=== PATIENT | male | born 1965 | race Two or more races ===

== ENCOUNTER 2018-07-04 10:50 | Emergency (ER) | payer BC, OTHER ==
[~2018-07-04] VITALS: Ht 175.3 cm; Wt 97.5 kg
[~2018-07-04 10:50] MED LIST: CYCLOBENZAPRINE5 MG PO; HYDROCHLOROTHIA25 MG PO; LIPITOR; LIPITOR20 MG PO; NKM; PANTOPRAZOLE SO40 MG PO; TYLENOL WITH C1 EACH PO
--- OUTSIDE RECORDS SUMMARY | 2018-07-04 10:53 | XMS REPORT | Clinical Summary ---
Author Author [facility] Address Unknown Phone Unavailable Care Team Providers Care Telephone Mechanic Name Role Phone Rocky Lilly MD PCP Allergies No Known Allergies Medications End Date Status Medication Sig Dispensed Refills Start Date Active gabapentin (NEURONTIN) Take 300 mg 0 300 mg capsule by mouth 3 (three) times a day. Active atorvastatin (LIPITOR) 40 Take 1 tablet 90 tablet 1 MG tabletIndications: (40 mg total) 9 Elevated lipids by mouth nightly. 05/08/2018 Discontinued valACYclovir (VALTREX) Take 1,000 mg 0 500 MG tablet by mouth daily as needed. For cold sores. Take for 5 days. 05/13/2018 valACYclovir (VALTREX) Take 2 10 tablet 2 500 MG tabletIndications: tablets 9 Recurrent cold sores (1,000 mg total) by mouth daily for 5 days. For cold sores outbreaks Active Problems Problem Noted Date Family history of prostate cancer 05/08/2018 Colon cancer screening 05/08/2018 KOJO on CPAP 05/08/2018 Recurrent cold sores 05/08/2018 Nerve pain 05/08/2018 Encounters Care Team Description Date Type Specialty nAa M Richards RN 07/04/2018 Telephone Access Ana M Richards RN 07/04/2018 Nurse Triage Access Rocky Lilly MD Annual physical exam (Primary Dx); Essential hypertension; Elevated lipids; KOJO on CPAP; Prostate cancer screening; BMI 33.0-33.9,adult; Recurrent cold sores; Need for influenza vaccination 05/08/2018 Office Visit Internal Medicine after 07/03/2017 Immunizations Name Dates Previously Given Next Due INFLUENZA QUAD 05/08/2018 Family History Medical History Relation Name Comments Cancer Father Prostate cancer Father Breast cancer Mother Cancer Mother Relation Name Status Comments Father Alive Mother Social History Date Tobacco Use Types Packs/Day Years Used Never Smoker Smokeless Tobacco: Never Used Alcohol Use Drinks/Week oz/Week Comments Yes Sex Assigned at Date Recorded Not on file Industry Job Start Date Occupation Not on file Not on file Not on file Travel End Travel History Travel Start No recent travel history available. Last Filed Vital Signs Time Taken Vital Sign Reading 05/08/2018 4:15 PM CDT Blood Pressure 122/80 05/08/2018 4:15 PM CDT Pulse 72 - Temperature - - Respiratory Rate - - Oxygen Saturation - - Inhaled Oxygen - Concentration 05/08/2018 4:15 PM CDT Weight 104 kg (230 lb) 05/08/2018 4:15 PM CDT Height 175.3 cm (5' 9") 05/08/2018 4:15 PM CDT Body Mass Index 33.97 Plan of Treatment Health Maintenance Due Date Last Done Comments INFLUENZA VACCINE 09/28/2018 05/08/2018 SHINGLES VACCINES (#1) 06/27/2019 Postponed from 04/27/2013 (Insurance / Financial) COLON CANCER SCREENING 02/28/2027 02/28/2017 Procedures Comments Procedure Name Priority Date/Time Associated Diagnosis MICROSCOPIC EXAMINATION Routine 05/16/2018 8:08 AM CDT PROSTATE-SPECIFIC ANTIGEN Routine 05/16/2018 Annual physical exam (PSA) (SERIAL MONITOR) 8:08 AM CDT Prostate cancer screening URINALYSIS, COMPLETE, Routine 05/16/2018 Annual physical exam WITH REFLEX TO CULTURE 8:08 AM CDT BMI 33.0-33.9,adult TSH REFLEX TO T4F Routine 05/16/2018 Annual physical exam 8:08 AM CDT BMI 33.0-33.9,adult LIPID PANEL WITH LDL/HDL Routine 05/16/2018 Elevated lipids RATIO 8:08 AM CDT Annual physical exam BMI 33.0-33.9,adult HEMOGLOBIN A1C Routine 05/16/2018 Annual physical exam 8:08 AM CDT BMI 33.0-33.9,adult COMPREHENSIVE METABOLIC Routine 05/16/2018 Essential hypertension PANEL 8:08 AM CDT Annual physical exam BMI 33.0-33.9,adult CBC WITH PLATELET AND Routine 05/16/2018 Essential hypertension DIFFERENTIAL 8:08 AM CDT Annual physical exam BMI 33.0-33.9,adult after 07/03/2017 Results * PSA, Serum (Serial Monitor) (05/16/2018 8:08 AM CDT) PSA 1.8 0.0 - 4.0 ng/mL [facility] Comment: Camilla ECLIA methodology. According to the [employer], Serum PSA should decrease and remain at undetectable levels after radical prostatectomy. The AUA defines biochemical recurrence as an initial PSA value 0.2 ng/mL or greater followed by a subsequent confirmatory PSA value 0.2 ng/mL or greater. Values obtained with different assay methods or kits cannot be used interchangeably. Results cannot be interpreted as absolute evidence of the presence or absence of malignant disease. Specimen Blood Narrative Performed At Performed at: [id number] Environmental Engineering Intern: Dionicio Escobedo MD, Phone:[phone] Performing Organization Address City/State/Zipcode Phone Number [facility] * URINALYSIS, COMPLETE, WITH REFLEX TO CULTURE (05/16/2018 8:08 AM CDT) Specific gravity, urine 1.021 1.005 - 1.030 [facility] pH, urine 6.5 5.0 - 7.5 [facility] Color, UA Yellow Yellow [facility] Appearance Clear Clear [facility] WBC esterase, urine Negative Negative [facility] Protein, UA Negative Negative/Trace [facility] Glucose, urine Negative Negative [facility] Ketones, UA Negative Negative [facility] Occult blood, urine Negative Negative [facility] Bilirubin, UA Negative Negative [facility] Urobilinogen, UA 0.2 0.2 - 1.0 mg/dL [facility] Nitrite, UA Negative Negative [facility] Microscopic examination CommentComment: Microscopic [facility] follows if indicated. Microscopic examination See below:Comment: Microscopic [facility] was indicated and was performed. Urinalysis reflex CommentComment: This specimen [facility] will not reflex to a Urine Culture. Narrative Performed At Performed at: [id number] Environmental Engineering Intern: Dionicio Escobedo MD, Phone:[phone] Performing Organization Address [facility] [place] Phone Number [facility] * TSH reflex to T4 (05/16/2018 8:08 AM CDT) TSH 1.290 0.450 - 4.500 uIU/mL [facility] Specimen Blood Narrative Performed At Performed at: [id number] Environmental Engineering Intern: Dionicio Escobedo MD, Phone:[phone] Performing Organization Address [facility] [place] Phone Number [facility] * Lipid panel with LDL/HDL ratio (05/16/2018 8:08 AM CDT) Cholesterol 184 100 - 199 mg/dL [facility] Triglycerides 131 0 - 149 mg/dL [facility] HDL cholesterol 34 (L) >39 mg/dL [facility] VLDL cholesterol triston 26 5 - 40 mg/dL [facility] LDL cholesterol 124 (H) 0 - 99 mg/dL [facility] calculated LDl/HDL ratio 3.6 0.0 - 3.6 ratio [facility] Comment: LDL/HDL Ratio Me nWomen 1/2 Avg.Risk1.01.5 Avg.Risk3.6 3.2 2X Avg.Risk6.25.0 3X Avg.Risk8.06.1 Specimen Blood Narrative Performed At Performed at: [id number] Environmental Engineering Intern: Dionicio Escobedo MD, Phone:[phone] Performing Organization Address [facility] [place] Phone Number [facility] * Microscopic Examination (05/16/2018 8:08 AM CDT) WBC, UA 0-5 0 - 5 /hpf [facility] RBC, UA None seen 0 - 2 /hpf [facility] Epithelial cells (non None seen 0 - 10 /hpf [facility] renal) Mucus, UA Present Not Estab. [facility] Bacteria, UA None seen None seen/Few [facility] Narrative Performed At Performed at: [id number] Environmental Engineering Intern: Dionicio Escobedo MD, Phone:[phone] Performing Organization Address [facility]/State/Zipcode Phone Number [facility] * CBC with platelet and differential (05/16/2018 8:08 AM CDT) WBC 5.1 3.4 - 10.8 x10E3/uL [facility] RBC 4.69 4.14 - 5.80 x10E6/uL [facility] HGB 13.5 13.0 - 17.7 g/dL [facility] HCT 39.3 37.5 - 51.0 % [facility] MCV 84 79 - 97 fL [facility] MCH 28.8 26.6 - 33.0 pg [facility] MCHC 34.4 31.5 - 35.7 g/dL [facility] RDW 13.5 12.3 - 15.4 % [facility] Platelet count 278 150 - 379 x10E3/uL [facility] Neutrophils 46 Not Estab. % [facility] Lymphocytes 46 Not Estab. % [facility] Monocytes 6 Not Estab. % [facility] Eosinophils 2 Not Estab. % [facility] Basophils 0 Not Estab. % [facility] Neutrophils, absolute 2.3 1.4 - 7.0 x10E3/uL [facility] Lymphocytes, absolute 2.3 0.7 - 3.1 x10E3/uL [facility] Monocytes, absolute 0.3 0.1 - 0.9 x10E3/uL [facility] Eosinophils, absolute 0.1 0.0 - 0.4 x10E3/uL [facility] Basophils, absolute 0.0 0.0 - 0.2 x10E3/uL [facility] Immature granulocytes 0 Not Estab. % [facility] Immature grans (abs) 0.0 0.0 - 0.1 x10E3/uL [facility] Specimen Blood Narrative Performed At Performed at: - [facility] [address], [id number] Environmental Engineering Intern: Dionicio Escobedo MD, Phone:[phone] Performing Organization Address City/State/Zipcode Phone Number [facility] * Hemoglobin A1c (05/16/2018 8:08 AM CDT) Hemoglobin A1C 4.5 (L) 4.8 - 5.6 % [facility] Comment: Prediabetes: 5.7 - 6.4 Diabetes: >6.4 Glycemic control for adults with diabetes: <7.0 Specimen Blood Narrative Performed At Performed at: - [facility] [address], [id number] Environmental Engineering Intern: Dionicio Escobedo MD, Phone:[phone] Performing Organization Address City/State/Zipcode Phone Number [facility] * Comprehensive metabolic panel (05/16/2018 8:08 AM CDT) Glucose 91 65 - 99 mg/dL [facility] BUN, whole blood 13 6 - 24 mg/dL [facility] Creatinine 1.05 0.76 - 1.27 mg/dL [facility] EGFR Non-Afr. [place] 80 >59 mL/min/1.73 [facility] EGFR 92 >59 mL/min/1.73 [facility] BUN/creatinine ratio 12 9 - 20 [facility] Sodium 144 134 - 144 mmol/L [facility] Potassium 4.1 3.5 - 5.2 mmol/L [facility] Chloride 103 96 - 106 mmol/L [facility] CO2 24 20 - 29 mmol/L [facility] Calcium 9.4 8.7 - 10.2 mg/dL [facility] Protein 6.5 6.0 - 8.5 g/dL [facility] Albumin, S 4.2 3.5 - 5.5 g/dL [facility] Globulin, total 2.3 1.5 - 4.5 g/dL [facility] Albumin/globulin ratio 1.8 1.2 - 2.2 [facility] Total bilirubin 0.6 0.0 - 1.2 mg/dL [facility] Alkaline phosphatase 84 39 - 117 IU/L [facility] AST 13 0 - 40 IU/L [facility] ALT 15 0 - 44 IU/L [facility] Specimen Blood Narrative Performed At Performed at: - [facility] [address], [id number] Environmental Engineering Intern: Dionicio Escobedo MD, Phone:[phone] Performing Organization Address City/State/Zipcode Phone Number [facility] after 07/03/2017 Insurance Payer Benefit Subscriber ID Type Phone Address Plan / Group [facility] xxxxxxxxx HMO/PPO THCARE CHOICE/CHO ICE + ([place]) [place] [address] Advance Directives Patient has advance care planning documents on file. For more information, silvia arellano contact: Eran Martinez [address] [place] [address]
[2018-07-04] MEDS ORDERED: ASPIRIN 81 MG CHEW TAB PO ONE (11:00)
[2018-07-04 11:30] LABS: BASOPHILS % 0.6 % (0.0-1.0); EOSINOPHILS # (AUTO) 0.2 (0.0-0.4); EOSINOPHILS % 2.6 % (0.0-6.0); HEMATOCRIT 37.6 % (38.2-49.6); HEMOGLOBIN 13.6 g/dL (14.0-18.0); LYMPHOCYTES # (AUTO) 2.4 (1.0-3.2); LYMPHOCYTES % 38.5 % (18.0-39.1); MEAN CORPUSCULAR HEMOGLOBIN 29.5 pg (28-32); MEAN CORPUSCULAR HGB CONC 36.2 g/dL (31-35); MEAN CORPUSCULAR VOLUME 81.6 fL (81-99); MONOCYTES # (AUTO) 0.6 (0.2-0.8); MONOCYTES % 9.7 % (4.4-11.3); NEUTROPHILS % 48.3 % (38.7-80.0); PLATELET COUNT 284 x10e3/uL (140-360); RED BLOOD COUNT 4.61 x10e6/uL (4.3-5.7); RED CELL DISTRIBUTION WIDTH 12.2 % (11.7-14.4)
[2018-07-04 11:39] LABS: INR 0.9; PROTHROMBIN TIME 12.6 seconds (11.9-14.5)
[2018-07-04 11:40] LABS: PARTIAL THROMBOPLASTIN TIME 34.5 seconds (23.8-35.5)
[2018-07-04 11:51] LABS: ALANINE AMINOTRANSFERASE 24 IU/L (0-55); ALBUMIN 3.9 g/dL (3.5-5.0); ALBUMIN/GLOBULIN RATIO 1.2 (0.8-2.0); ALKALINE PHOSPHATASE 99 IU/L (40-150); ANION GAP 10.6 mmol/L (8-16); BLOOD UREA NITROGEN 18 mg/dL (7-26); BUN/CREATININE RATIO 16 (6-25); CALCIUM 9.8 mg/dL (8.4-10.2); CARBON DIOXIDE 30 mmol/L (22-29); CHLORIDE 100 mmol/L (98-107); CREATINE KINASE 301 IU/L (30-200); CREATININE, SERUM 1.11 mg/dL (0.72-1.25); EST GLOMERULAR FILTRATION RATE > 60 ML/MIN (60-); GLUCOSE 81 mg/dL (74-118); MAGNESIUM 2.3 MG/DL (1.3-2.1); POTASSIUM 3.6 mmol/L (3.5-5.1); SODIUM 137 mmol/L (136-145)
[2018-07-04 12:04] LABS: BILIRUBIN,URINE NEGATIVE (NEGATIVE); CLARITY,URINE CLEAR (CLEAR); COLOR,URINE YELLOW (YELLOW); KETONES,URINE NEGATIVE (NEGATIVE); LEUKOCYTE ESTERASE ,URINE NEGATIVE (NEGATIVE); NITRITE,URINE NEGATIVE (NEGATIVE); PROTEIN,URINE DIPSTICK NEGATIVE (NEGATIVE); URINE UROBILINOGEN 0.2 mg/dL (0.2 - 1)
--- NOTE | 2018-07-04 12:09 | Diagnostic Imaging Report ---
Chest, 1 view, 07/04/2018. History: Pain. Comparison: None available. Findings: The cardiomediastinal silhouette and pulmonary vasculature are within normal limits for a portable exam. There is no focal consolidation or pleural effusion. There are no acute osseous or soft tissue abnormalities. Impression: No acute cardiopulmonary abnormality. Signed by: Juanito Kaur on 07/04/2018 12:06 PM
[2018-07-04 12:10] LABS: THYROID STIMULATING HORMONE 1.304 uIU/mL (0.350-4.940)
--- NOTE | 2018-07-04 12:42 | NUR ---
DR. FAM ATTEMPTING TO CALL [facility] TO SET UP APPT
== END 2018-07-04 12:53 | disposition home or self-care (01) ==
LOC: ER 10:50
DX: R07.89 Other chest pain (principal); I10 Essential (primary) hypertension; E78.5 Hyperlipidemia, unspecified
CPT/HCPCS: 36415; 71045; 80053; 81001; 82550; 82553; 83735; 83880; 84443; 84484; 85025; 85379; 85610; 85730; 87086; 93005; 99284